=== PATIENT | female | born 1970 | race Caucasian/White ===

== ENCOUNTER 2016-11-06 07:51 | Emergency (ER) | payer OTHER ==
[~2016-11-06] VITALS: Ht 160 cm; Wt 72.0 kg
[2016-11-06 07:52] VITALS: Ht 160 cm; Wt 72.0 kg
[2016-11-06] MEDS ORDERED: ONDANSETRON 4 MG INJ IV STA (07:55)
[2016-11-06] MEDS ORDERED: FAMOTIDINE 20 MG INJ IV STA (07:55)
[2016-11-06] MEDS ORDERED: SOD CHLORIDE 0.9% 1,000 ML IV STA (07:55)
[2016-11-06 08:17] VITALS: TEMP 97.6
[2016-11-06 08:30] LABS: ADD SCAN DIFF NO
[2016-11-06 08:39] LABS: BASOPHILS % 0.2 % (0.0-2.0); EOSINOPHILS % 0.3 % (0.0-7.0); HEMATOCRIT 37.2 % (37.0-47.0); HEMOGLOBIN 12.3 g/dl (12.0-16.0); LYMPHOCYTES # 3.3 10^3/ul (0.8-2.9); LYMPHOCYTES % 27.1 % (15.0-51.0); MEAN CORPUSCULAR HEMOGLOBIN 29.4 pg (29.0-33.0); MEAN CORPUSCULAR HGB CONC 33.1 g/dl (32.0-37.0); MEAN PLATELET VOLUME 11.3 fl (7.4-10.4); MONOCYTE # 0.9 10^3/ul (0.3-0.9); MONOCYTES % 7.3 % (0.0-11.0); NEUTROPHIL # 7.8 10^3/ul (1.6-7.5); NEUTROPHILS % 64.4 % (39.0-77.0); PLATELET COUNT 272 10^3/UL (140-415); RED BLOOD COUNT 4.18 10^6/ul (4.20-5.40); RED CELL DISTRIBUTION WIDTH 12.4 % (11.5-14.5); WHITE BLOOD COUNT 12.1 10^3/ul (4.8-10.8)
[2016-11-06] MEDS ORDERED: LEVO100T82 PO (08:39)
--- NOTE | 2016-11-06 09:00 | RADRPT ---
PROCEDURE: Chest Radiograph. CLINICAL INDICATION: Chest pain TECHNIQUE: Single frontal chest radiograph. COMPARISON: None available FINDINGS: The cardiomediastinal silhouette is within normal limits. No infiltrate or effusion is seen. Th e bones are intact. IMPRESSION: 1. Unremarkable chest radiograph. RPTAT: KK .Torsten Hancock MD, MD Date Time Electronically viewed and signed by .Torsten Hancock MD, on 11/06/2016 09:00 .B/
[2016-11-06 09:01] LABS: ALBUMIN 5.1 g/dl (3.3-4.9); ALBUMIN/GLOBULIN RATIO 1.5; BILIRUBIN,INDIRECT 0.2 mg/dl (0-1.1); BILIRUBIN,TOTAL 0.2 mg/dl (0.2-1.3); CALCIUM 9.8 mg/dl (8.4-10.2); CREATININE 0.55 mg/dl (0.44-1.00); POTASSIUM 3.6 mmol/L (3.5-5.1); TOTAL PROTEIN 8.5 g/dl (6.1-8.1)
[2016-11-06 09:20] LABS: ADD UMIC YES; UR ASCORBIC ACID NEGATIVE (NEGATIVE); UR BILIRUBIN (Dip) NEGATIVE (NEGATIVE); UR BLOOD (Dip) NEGATIVE (NEGATIVE); UR CLARITY CLEAR (CLEAR); UR COLOR YELLOW (YELLOW); UR GLUCOSE (Dip) NEGATIVE (NEGATIVE); UR KETONES (Dip) NEGATIVE (NEGATIVE); UR LEUKOCYTE ESTERASE (Dip) TRACE Leu/ul (NEGATIVE); UR NITRITE (Dip) NEGATIVE (NEGATIVE); UR RBC 1 /HPF (0-5); UR SPECIFIC GRAVITY (Dip) 1.003 (1.003-1.030); UR TOTAL PROTEIN (Dip) NEGATIVE (NEGATIVE); UR UROBILINOGEN (Dip) NEGATIVE (NEGATIVE)
[2016-11-06 10:23] VITALS: BP 105/72; PULSE 72; RESP 20
--- NOTE | 2016-11-06 10:27 | ERD ---
ER Documentation Chief Complaint Date/Time DATE: 11/06/16 TIME: 10:18 Chief Complaint nausea vomiting since last night HPI This is a 46-year-old female who presents to the emergency room for evaluation of nausea and vomiting for one days duration. The patient was seen in the hospital yesterday and was diagnosed with hyperthyroidism. She was given a prescription of unknown medication was discharged home. She presents today for evaluation of nausea and vomiting. The patient is denying any chest pain or palpitations at this time, and she is denying any blood in her vomit. ROS All systems reviewed and are negative except as per history of present illness. Medications Home Meds Reported Medications Levothyroxine Sodium* (Levoxyl*) 100 Mcg Tablet, 100 MCG PO BEFORE BREAKFAST, # 30 TAB 11/06/16 Allergies Allergies: Coded Allergies: No Known Allergy (Unverified , 11/06/16) Physical Exam Vitals Vital Signs Date Time Temp Pulse Resp B/P Pulse Ox O2 Delivery O2 Flow Rate FiO2 11/06/16 08:17 97.6 11/06/16 07:52 74 20 136/74 100 Physical Exam INITIAL VITAL SIGNS: Reviewed by me GENERAL: The patient is well developed and appropriate for usual state of health in no apparent distress HEENT: Pupils equal, round, and reactive to light. EOMI. There is no scleral icterus. NECK: C-spine is soft and supple, there is no meningismus. There is no cervical lymphadenopathy. LUNGS: Clear to auscultation bilaterally. There are no rales, wheezes or rhonchi. HEART: Regular rate and rhythm, no murmurs, clicks, rubs or gallops. ABDOMEN: Soft, non-tender, non-distended. There are bowel sounds in all four quadrants. No rebound or guarding. EXTREMITIES: There is no peripheral cyanosis or edema. No focal swelling or erythema. NEUROLOGICAL: The patient moves all four extremities with 5/5 strength. Cranial nerves II - XII are intact. Normal gait. Alert and oriented SKIN: There is no apparent rash or petechiae. HEME/LYMPHATIC: There is no evidence of excessive bruising or lymphedema. PSYCHIATRIC: The patient does not appear anxious or depressed. Result Diagram: 11/06/16 0815 11/06/16 0815 Results 24 hrs Laboratory Tests Test 11/06/16 08:15 11/06/16 09:00 White Blood Count 12.110^3/ul Red Blood Count 4.1810^6/ul Hemoglobin 12.3g/dl Hematocrit 37.2% Mean Corpuscular Volume 89.0fl Mean Corpuscular Hemoglobin 29.4pg Mean Corpuscular Hemoglobin Concent 33.1g/dl Red Cell Distribution Width 12.4% Platelet Count 30074^3/UL Mean Platelet Volume 11.3fl Neutrophils % 64.4% Lymphocytes % 27.1% Monocytes % 7.3% Eosinophils % 0.3% Basophils % 0.2% Nucleated Red Blood Cells % 0.0/100WBC Neutrophils # 7.810^3/ul Lymphocytes # 3.310^3/ul Monocytes # 0.910^3/ul Eosinophils # 0.010^3/ul Basophils # 0.010^3/ul Nucleated Red Blood Cells # 0.010^3/ul Sodium Level 140mmol/L Potassium Level 3.6mmol/L Chloride Level 101mmol/L Carbon Dioxide Level 26mmol/L Anion Gap 17 Blood Urea Nitrogen 8mg/dl Creatinine 0.55mg/dl Glucose Level 126mg/dl Calcium Level 9.8mg/dl Total Bilirubin 0.2mg/dl Direct Bilirubin 0.00mg/dl Indirect Bilirubin 0.2mg/dl Aspartate Amino Transf (AST/SGOT) 31IU/L Alanine Aminotransferase (ALT/SGPT) 44IU/L Alkaline Phosphatase 67IU/L Troponin I < 0.012ng/ml Total Protein 8.5g/dl Albumin 5.1g/dl Globulin 3.40g/dl Albumin/Globulin Ratio 1.50 Lipase 37U/L Urine Color YELLOW Urine Clarity CLEAR Urine pH 9.0 Urine Specific [place] 1.003 Urine Ketones NEGATIVEmg/dL Urine Nitrite NEGATIVEmg/dL Urine Bilirubin NEGATIVEmg/dL Urine Urobilinogen NEGATIVEmg/dL Urine Leukocyte Esterase TRACELeu/ul Urine Microscopic RBC 1/HPF Urine Microscopic WBC 3/HPF Urine Hemoglobin NEGATIVEmg/dL Urine Glucose NEGATIVEmg/dL Urine Total Protein NEGATIVEmg/dl Current Medications Medications (Trade) Dose Ordered Sig/Ruperto Route PRN Reason Start Time Stop Time Status Last Admin Dose Admin Sodium Chloride (NS) 1,000 ml @ 1,000 mls/hr Q1H STAT IV 11/06/16 07:55 11/06/16 08:54 DC 11/06/16 08:24 Ondansetron HCl (Zofran Inj) 4 mg ONCE STAT IV 11/06/16 07:55 11/06/16 07:56 DC 11/06/16 08:24 Famotidine (Pepcid Iv) 20 mg ONCE STAT IV 11/06/16 07:55 11/06/16 07:56 DC 11/06/16 08:24 Procedures/MDM EKG: Rate/Rhythm: [Normal Sinus Rhythm] QRS, ST, T-waves: [No changes consistent w/ acute ischemia] Impression: [No evidence of ischemia or arrhythmia] Chest X-ray 1V Interpreted by me: Soft Tissue: No acute abnormalities Bones: No acute abnormalities Mediastinum/Cardiac Silhouette/Lungs: [No acute abnormalities] This 46-year-old female presents to the emergency room for evaluation of nausea and vomiting. She was seen in the emergency room at a different facility yesterday and was diagnosed with hyper thyroidism. When I evaluated this patient she was in no acute distress. I did obtain lab work including a chest x -ray all of which are within normal limits. The patient was given Zofran in the emergency room. Urinalysis is also clear. The patient also has a negative troponin and nonischemic EKG. Advised her that I will give her a prescription for Zofran for nausea vomiting. The patient is not hypoxic, nontoxic appearing and is in no respiratory distress at this time. I advised her and her family that if this patient were to develop any worsening symptoms including chest pain or shortness of breath they need to return immediately to the emergency room for further evaluation. They did verbalize understanding and are okay with the plan of care for discharge at this time. Departure Diagnosis: Primary Impression: Nausea and vomiting Condition: Stable CHANTELLECARLEEN QUINTANAFRANDY ANDERSON Nov 06, 2016 10:27
[2016-11-06] MEDS ORDERED: ONDA4TAB8 PO (10:29)
== END 2016-11-06 10:49 | disposition home or self-care (01) ==
LOC: E/R 07:51 → EDSEX 07:51 → E/R 10:49
DX: R11.2 Nausea with vomiting, unspecified (principal); R07.9 Chest pain, unspecified
CPT/HCPCS: 36415; 71010; 80053; 81001; 83690; 84484; 85025; 93005; 96374; 96375; J2405; J7030; Z7502; Z7610

== ENCOUNTER 2017-07-04 14:02 | Emergency (ER) | END 2017-07-04 14:26 | disposition home or self-care (01) ==